=== PATIENT | male | born 2000 | race Hispanic/Latino ===

== ENCOUNTER 2020-11-22 11:48 | Emergency (ER) | payer SELFPAY ==
[~2020-11-22] VITALS: Ht 170.2 cm; Wt 85.0 kg
[2020-11-22] MEDS ORDERED: BACTRIM DS1 TAB PO ×2 (12:45→12:46)
[2020-11-22] MEDS ORDERED: KEFLEX500 MG PO ×2 (12:45→12:46)
[2020-11-22 13:08] VITALS: BP 118/69
== END 2020-11-22 13:08 | disposition home or self-care (01) | DRG 603 ==
LOC: ED 11:48
PROC: 0H98XZZ Drainage of Buttock Skin, External Approach (ICD-10-PCS; principal; 2020-11-22)
DX: L02.31 Cutaneous abscess of buttock (principal); B95.4 Other streptococcus as the cause of diseases classified elsewhere

== ENCOUNTER 2020-11-24 10:03 | Emergency (ER) | payer SELFPAY ==
[~2020-11-24] VITALS: Ht 170.2 cm; Wt 85.0 kg
[~2020-11-24 10:03] MED LIST: BACTRIM DS1 TAB PO; KEFLEX500 MG PO
[2020-11-24] MEDS ORDERED: EPSOM SAL1 XX (11:01)
[2020-11-24 11:20] VITALS: BP 121/78
== END 2020-11-24 11:20 | disposition home or self-care (01) | DRG 951 ==
LOC: ED 10:03
DX: Z48.01 Encounter for change or removal of surgical wound dressing (principal)